=== PATIENT | female | born 1940 | race Caucasian/White ===

== ENCOUNTER 2016-08-31 17:46 | Inpatient (IN) | payer MEDICARE | END 2016-09-03 00:10 | disposition E | DRG 61 | DX: I63.312 Cerebral infarction due to thrombosis of left middle cerebral artery (principal); J96.01 Acute respiratory failure with hypoxia; G93.6 Cerebral edema; I48.2 Chronic atrial fibrillation; Z51.5 Encounter for palliative care; G81.91 Hemiplegia, unspecified affecting right dominant side; I10 Essential (primary) hypertension; R47.01 Aphasia; Z86.73 Personal history of transient ischemic attack (TIA), and cerebral infarction without residual deficits; Z79.82 Long term (current) use of aspirin; Z87.442 Personal history of urinary calculi ==